=== PATIENT | female | born 1990 | race Caucasian/White ===

== ENCOUNTER 2021-03-31 13:39 | Emergency (ER) | payer SELFPAY ==
--- OUTSIDE RECORDS SUMMARY | 2021-03-31 13:42 | XMS REPORT | Continuity of Care Document ---
:1990 Author Organization [facility] Address [address] Lozano [address] [place] [id number] Care Team Providers Name Role Phone DR MIRANDA Attending Clinician Unavailable DR MIRANDA Admitting Clinician Unavailable Problems This patient has no known problems. Allergies, Adverse Reactions, Alerts This patient has no known allergies or adverse reactions. Medications This patient has no known medications. Procedures This patient has no known procedures. Encounters Start End Encounter Admission Attending Care Care Encounter Source Date/Time Date/Time Type Type Clinicians Facility Department ID 2019-06-13 2019-06-13 Emergency E [id number] [facility] 22:04:00 22:04:00 2017-03-15 2017-03-15 [facility] [id number] Access 00:00:00 00:00:00 H, PROVIDER Trae salmeron 2016-01-21 2016-01-21 Emergency [facility] [id number] [facility] 11:28:00 15:21:00 [facility] 2016-01-19 2016-01-19 [facility] [id number] Access 00:00:00 00:00:00 H, PROVIDER Trae salmeron 2015-01-30 2015-01-30 [facility] [id number] Access 00:00:00 00:00:00 H, PROVIDER Trae salmeron 2015-01-24 2015-01-24 [facility] [id number] Access 00:00:00 00:00:00 H, PROVIDER Trae salmeron 2015-01-03 2015-01-03 [facility] [id number] Access 00:00:00 00:00:00 H, PROVIDER Trae salmeron 2015-01-02 2015-01-02 [facility] [id number] Access 00:00:00 00:00:00 H, PROVIDER Trae salmeron 2014-12-28 2014-12-28 Outpatient [facility] [id number] Access 00:00:00 00:00:00 H, PROVIDER Trae salmeron 2014-12-27 2014-12-27 Outpatient [facility] [id number] Access 00:00:00 00:00:00 H, PROVIDER Trae alth 2014-12-20 2014-12-20 [facility] [id number] Access 00:00:00 00:00:00 H, PROVIDER Trae alth Results Test Description Test Time Test Comments Results Result Comments Source URINE CULTURE 2017-02-10 07:50:00 Test Item Value Reference Range Interpretation Comme nts Isolate 1 (test code = ISO1) Escherichia coli A ampicillin (test code = am) ug/mL R ampicillin/sulbactam (test code = ams) ug/mL S piperacillin/tazobactam (test code = tzp) ug/mL S cefazolin (test code = cz) ug/mL S ceftazidime (test code = sabas) ug/mL S ceftriaxone1 (test code = ctr) ug/mL S cefepime (test code = fep) ug/mL S aztreonam (test code = azm) ug/mL S ertapenem (test code = etp) ug/mL S meropenem (test code = mem) ug/mL S gentamicin (test code = gm) ug/mL S tobramycin (test code = tob) ug/mL S levofloxacin (test code = lev) ug/mL S nitrofurantoin (test code = ftn) ug/mL S trimethoprim/sulfamethoxazole (test code = sxt) ug/mL S CT STONE PROTOCOL [id number] 09:25:39CT ABDOMEN AND PELVIS WITHOUT CONTRASTCLINICAL INFORMATION: Left flank painCOMPARISON: No prior katie risons.TECHNIQUE: Helical CT imaging of the abdomen and pelvis was performed withoutthe use of intravenous contrast. Oral contrast was not provided. Coronal andsagittal reformats were provided. One or more of the following dose reductiontechniques were used: Automated exposure control, adjustment ofthe mA and/orkV according to the patient size, and/or utilization of iterativereconstruction technique.FINDINGS:The visualized lung bases are clear. No pleural effusion is seen. The heartsize is normal.The unenhanced liver, gallbladder, spleen, pancreas, and adrenal glands areunremarkable.There is mild left perinephric fat stranding. No hydronephrosis or hydroureteris seen. No renal or bladder stone is appreciated. The urinary bladder showscircumferential wall thickening however this is accentuated by underdistention.The uterus is unremarkable. There are small follicles in both ovaries.Mildly prominent left retroperitoneal lymph nodes are seen. These measure aslarge as 1.1 cm (series 2, image 47).The small bowel loops are nondilated. The appendix is normal. No free air orfree fluid is present.Thebones are intact.IMPRESSION:1. Mild left perinephric fat stranding is noted. Differential considerationswould include urinary tract infection, pyelonephritis, or a recently passedstone.2. No renal, ureteral, or bladder stone is identified currently.3. Mild left retroperitoneal adenopathy, likely reactive.Location: [id number] WITH [id number] 07:06:00 Test Item Value Reference Range Interpretation Comments COLOR (test code = COLU) YELLOW YELLOW CLARITY (test code = CLA) CLOUDY CLEAR A GLUCOSE UR (test code = UA GLUCOSE) NEGATIVE NEGATIVE BILI UR (test code = BILE) NEGATIVE NEGATIVE KETONES UR (test code = MOR) 2+ NEGATIVE A SP GRAVITY (test code = SPGR) 1.022 1.005-1.030 PH UR (test code = PH) 5.5 4.5-8.0 PROTEIN UR (test code = PU) 1+ NEGATIVE A UROBIL UR (test code = UROQ) 0.2 EU/dL 0.2-1.0 NITRITE UR (test code = NITRITE) POSITIVE NEGATIVE A BLOOD UR (test code = UA BLOOD) TRACE NEGATIVE A LEUK ES UR (test code = LEUK) 2+ NEGATIVE A WBC UR (test code = UWBC) 14 /HPF 0-5 H RBC UR (test code = URBC) 1 /HPF 0-2 EPITH UR (test code = UEPC) FEW /LPF FEW BACTERIA UR (test code = UBACT) FEW /HPF NONE A CAST UR (test code = CAST) /LPF NONE CRYSTAL UR (test code = CRYU) / LPF NONE MUCUS UR (test code = MUC) / HPF NONE AMORPH UR (test code = RY) / HPF NONE TRICH UR (test code = UTRICH) /HPF NONE YEAST UR (test code = UY) /HPF NONE SPERM UR (test code = USPERM) /HPF NONE CBC (INCLUDES AUTOMATED DIFFERENTIAL)2017-02-08 06:58:00 Test Item Value Reference Range Interpretation Comments WBC (test code = WBC) 14.1 10\S\3/uL 4.5-11.0 H RBC (test code = RBC) 4.82 10\S\6/uL 4.30-5.70 HGB (test code = HBG) 13.7 g/dL 12.0-15.5 HCT (test code = HCT) 41.7 % 35.0-44.0 MCV (test code = MCV) 86.5 fL 81.0-99.0 MCH (test code = MCH) 28.4 pg 27.0-31.0 MCHC (test code = MCHC) 32.9 g/dL 32.0-36.0 RDW (test code = RDW) 13.5 % 11.5-14.5 PLT (test code = PLT) 283 10\S\3/uL 130-400 MPV (test code = MPV) 11.0 fL 9.4-12.4 NEUTROP # (test code = NE#) 10.7 10\S\3/uL 1.6-8.0 H LYMPH # (test code = LY#) 1.5 10\S\3/uL 1.1-3.5 MONOCYTE # (test code = MO#) 1.6 10\S\3/uL 0.0-1.1 H EOSINOPH # (test code = EO#) 0.2 10\S\3/uL 0.0-0.7 BASOPHIL # (test code = BA#) 0.0 10\S\3/uL 0.0-0.3 IG # (test code = IG#) 0.05 10\S\3/uL 0.00-0.06 NRBC # (test code = NRBC#) 0.00 10\S\3/uL 0.00-0.01 NEUTROPH % (test code = NE%) 76.2 % 35.0-73.0 H LYMPH % (test code = LY%) 11.0 % 20.0-55.0 L MONO % (test code = MO%) 11.0 % 2.5-10.0 H EOSINOPH % (test code = EO%) 1.2 % 0.0-5.0 BASOPHIL % (test code = BA%) 0.2 % 0.0-2.0 IG % (test code = IG%) 0.4 % 0.0-0.8 NRBC% (test code = NRBC%) 0.0 % 0.0-0.2 MANDIFF (test code = MDIFF) NO NO RBC MORPH (test code = RBCMOR) NORMAL
--- NOTE | 2021-03-31 14:56 | EDPHYS ---
Physician Documentation [facility] Name: Elizabeth Broussard Age: 30 yrs Sex: Female : 1990 Arrival Date: 03/31/2021 Time: 13:42 Bed 10 Private MD: ED Physician Riky Roldan HPI: 03/31 14:50 This 30 yrs old Female presents to ER via Wheelchair with complaints of Insect Bite. pm1 14:50 The patient presents with an abscess of the lateral aspect of left calf and left groin pm1 area. Description: draining, raised. Onset: The symptoms/episode began/occurred 1 week(s) ago. Possible cause(s): shaving. Associated signs and symptoms: Pertinent negatives: fever. Modifying factors: the symptoms are alleviated by warm bath and expressing, the symptoms are aggravated by touching. Severity of symptoms: in the emergency department the symptoms are actually worse. The patient has not experienced similar symptoms in the past. The patient has not recently seen a physician. Historical: - Allergies: 14:33 PENICILLINS; iw - Home Meds: 14:33 None [Active]; iw - PMHx: 14:33 None; iw - PSHx: 14:33 section; iw - Immunization history:: Last tetanus immunization: < 5 years ago. - Social history:: Smoking status: . ROS: 14:50 Constitutional: Negative for fever, chills, and weight loss. pm1 14:50 Cardiovascular: Negative for chest pain, palpitations, and edema, Respiratory: Negative for shortness of breath, cough, wheezing, and pleuritic chest pain, MS/Extremity: Negative for injury and deformity. 14:50 Skin: Positive for abscess, of the left leg and left groin. 14:50 All other systems are negative. Exam: 14:50 Constitutional: This is a well developed, well nourished patient who is awake, alert, pm1 and in no acute distress. Head/Face: Normocephalic, atraumatic. 14:50 Cardiovascular: Exam negative for acute changes, Rate: normal, Rhythm: regular, Pulses: no pulse deficits are appreciated, Heart sounds: normal. 14:50 Respiratory: Exam negative for acute changes. 14:50 Skin: Appearance: normal except for affected area, abscess, that is small, of the left inguinal area and lateral aspect of left calf, both abscesses 2 cm x 1 cm area of induration with some serosanguinous drainage present, cellulitis, is not appreciated. 14:50 Neuro: Exam negative for acute changes, Orientation: is normal, Mentation: is normal, Motor: is normal, moves all fours. Vital Signs: 14:31 BP 104 / 83; Pulse 110; Resp 18; Temp 97.9; Pulse Ox 100% on R/A; Weight 63.5 kg; iw Height 5 ft. 3 in. (160.02 cm); 14:31 Body Mass Index 24.80 (63.50 kg, 160.02 cm) iw MDM: 14:40 Patient medically screened. pm1 14:50 Data reviewed: vital signs. Data interpreted: Pulse oximetry: on room air is 100 %. pm1 Interpretation: normal. 14:50 Refusal of service: The patient/guardian displays adequate decision making capability pm1 and despite a detailed discussion of alternatives, benefits, risks, and consequences refuses: incision and drainage of abscess. Patient wants to use antibiotic treatment and return to ED if no improvement for I\T\D. 14:59 ED course: Patient reports tetanus during . from [id number]. pm1 Administered Medications: No medications were administered Disposition: 04/01 09:22 Co-signature as Attending Physician, Riky Roldan MD I agree with the assessment and trish plan of care. Disposition Summary: 03/31/21 14:55 Discharge Ordered Location: Home pm1 Problem: new pm1 Symptoms: have improved pm1 Condition: Stable pm1 Diagnosis - Cutaneous abscess of left lower limb pm1 - Cutaneous abscess of groin pm1 Followup: pm1 - With: Emergency Department - When: As needed - Reason: Worsening of condition Followup: pm1 - With: Private Physician - When: 2 - 3 days - Reason: Recheck today's complaints, Continuance of care, Re-evaluation by your physician Discharge Instructions: - Discharge Summary Sheet pm1 - Skin Abscess pm1 Forms: - Medication Reconciliation Form pm1 - Work release form pm1 - Thank You Letter pm1 - Antibiotic Education pm1 - Prescription Opioid Use pm1 Prescriptions: - mupirocin 2 % Topical ointment - apply 1 application by TOPICAL route 3 times per day; 1 tube; Refills: 0, pm1 Product Selection Permitted - Bactrim DS 800-160 mg Oral Tablet - take 1 tablet by ORAL route every 12 hours for 10 days; 20 tablet; Refills: 0, pm1 Product Selection Permitted Signatures: Riky Roldan MD MD cha Williams, Irene, RN RN iw Audi Israel, [employer] pm1
--- NOTE | 2021-03-31 14:56 | ER ---
Nurse's Notes [facility] Name: Elizabeth Broussard Age: 30 yrs Sex: Female : 1990 Arrival Date: 03/31/2021 Time: 13:42 Bed 10 Private MD: Diagnosis: Cutaneous abscess of left lower limb;Cutaneous abscess of groin Presentation: 03/31 14:31 Chief complaint: Patient states: abscess to left leg and left abd X 1 week. Coronavirus iw screen: At this time, the client does not indicate any symptoms associated with coronavirus-19. Ebola Screen: Patient negative for fever greater than or equal to 101.5 degrees Fahrenheit, and additional compatible Ebola Virus Disease symptoms Patient denies exposure to infectious person. Patient denies travel to an Ebola-affected area in the 21 days before illness onset. No symptoms or risks identified at this time. Initial Sepsis Screen: Does the patient meet any 2 criteria? No. Patient's initial sepsis screen is negative. Does the patient have a suspected source of infection? No. Patient's initial sepsis screen is negative. Risk Assessment: Do you want to hurt yourself or someone else? Patient reports no desire to harm self or others. Onset of symptoms was March 24, 2021. 14:31 Method Of Arrival: Wheelchair iw 14:31 Acuity: NICOLE 4 iw Triage Assessment: 15:00 General: Appears in no apparent distress. General: Behavior is calm. iw Historical: - Allergies: 14:33 PENICILLINS; iw - Home Meds: 14:33 None [Active]; iw - PMHx: 14:33 None; iw - PSHx: 14:33 section; iw - Immunization history:: Last tetanus immunization: < 5 years ago. - Social history:: Smoking status: . Screenin:15 Abuse screen: Denies threats or abuse. Denies injuries from another. Nutritional iw screening: No deficits noted. Tuberculosis screening: No symptoms or risk factors identified. Fall Risk None identified. Assessment: 11:35 General: Appears in no apparent distress. Behavior is calm, cooperative. Pain: iw Complains of pain in left leg and left inguinal area and lateral aspect of left calf. Neuro: Level of Consciousness is awake, alert, obeys commands, Oriented to person, place, time, situation, Appropriate for age Moves all extremities. Full function. Cardiovascular: Patient's skin is warm and dry. Respiratory: Respiratory effort is even, unlabored, Respiratory pattern is regular, symmetrical. Derm: Skin Skin is pink, warm \T\ dry. Abscess located on left inguinal area and lateral aspect of left calf is dime sized. Vital Signs: 14:31 BP 104 / 83; Pulse 110; Resp 18; Temp 97.9; Pulse Ox 100% on R/A; Weight 63.5 kg; iw Height 5 ft. 3 in. (160.02 cm); 14:31 Body Mass Index 24.80 (63.50 kg, 160.02 cm) iw ED Course: 13:42 Patient arrived in ED. mr 14:33 Triage completed. iw 14:33 Arm band placed on. iw 14:40 Audi Israel NP is PHCP. pm1 14:40 Riky Roldan MD is Attending Physician. pm1 15:10 Perla Sy RN is Primary Nurse. iw 15:16 No provider procedures requiring assistance completed. Patient did not have IV access iw during this emergency room visit. Administered Medications: No medications were administered Outcome: 14:55 Discharge ordered by . pm1 15:16 Discharged to home ambulatory. iw 15:16 Condition: good 15:16 Discharge instructions given to patient, Instructed on discharge instructions, follow up and referral plans. medication usage, Demonstrated understanding of instructions, follow-up care, medications, Prescriptions given X 1. 15:17 Patient left the ED. iw Signatures: Elsa Angel Perla Sy RN RN iw Audi Israel NP [employer] pm1
[2021-03-31 15:38] VITALS: BP 104/83; TEMP 97.9; O2SAT 100
== END 2021-03-31 15:17 | disposition home or self-care (01) ==
LOC: ER 13:39
DX: L02.416 Cutaneous abscess of left lower limb (principal); L02.214 Cutaneous abscess of groin; Z88.0 Allergy status to penicillin
CPT/HCPCS: 99282